=== PATIENT | male | born 1950 | race Two or more races ===

== ENCOUNTER 2020-05-01 15:55 | Inpatient (IN) | payer OTHER ==
[~2020-05-01] VITALS: Ht 188 cm; Wt 59.9 kg
[2020-05-01] MEDS ORDERED: GAVISCON ES TA1 EACH (16:36)
[2020-05-01] MEDS ORDERED: FAMCICLOVIR500 MG (16:36)
[2020-05-01] MEDS ORDERED: DERMACINRX5000 UNIT (16:36)
[2020-05-01] MEDS ORDERED: HORIZANT600 MG (16:37)
[2020-05-01] MEDS ORDERED: NAPROXEN500 MG (16:37)
[2020-05-01] MEDS ORDERED: HORIZANT300 MG (16:37)
[2020-05-01] MEDS ORDERED: XOPENEX0.63 MG/3 (16:38)
[2020-05-01] MEDS ORDERED: RELAFEN DS1000 MG (16:38)
== END 2020-05-06 17:43 | disposition home or self-care (01) | DRG 825 ==
LOC: ER 15:55 → MEDJ 22:34
PROVIDERS: Specialist; ADMIT Internal Medicine; ATTEND Internal Medicine
PROC: 07BH0ZX Excision of Right Inguinal Lymphatic, Open Approach, Diagnostic (ICD-10-PCS; principal; 2020-05-03 11:30)
DX: C85.85 Other specified types of non-Hodgkin lymphoma, lymph nodes of inguinal region and lower limb (principal); Z20.822 Contact with and (suspected) exposure to COVID-19; B95.61 Methicillin susceptible Staphylococcus aureus infection as the cause of diseases classified elsewhere